=== PATIENT | male | born 1965 | race Caucasian/White ===

== ENCOUNTER 2016-08-29 10:00 | Day surgery (SDC) | payer BC ==
[2016-08-25 11:53] VITALS: BMI 27.6
[~2016-08-29 10:00] MED LIST: LACTATED RINGERS 1,000 ML IV SCH
[2016-08-29 10:15] VITALS: RESP 16; TEMP 98.7
[2016-08-29] MEDS ORDERED: LIDOCAINE 1% 20 ML VIAL (10MG/ML) FOR IV START INTRADERMA ONE (10:20)
[2016-08-29] MEDS ORDERED: PROPOFOL 10 MG/ML 20 ML VIAL IV ONE (10:31)
--- NOTE | 2016-08-29 10:43 | P.GSHP ---
History of Present Illness H&P Date: 08/29/16 Chief Complaint: Change in bowel habits Patient here today for colonoscopy. Last colonoscopy 4-5 years ago. He has had recent change in bowel habits including diverticulitis. Denies rectal bleeding or melena. Past Medical History Past Medical History: GERD/Reflux, Hyperlipidemia, Hypertension Additional Past Medical History / Comment(s): HX OF DIVERTICULITUS History of Any Multi-Drug Resistant Organisms: None Reported Past Surgical History: Appendectomy Additional Past Surgical History / Comment(s): PREVIOUS COLONOSCOPY Past Anesthesia/Blood Transfusion Reactions: No Reported Reaction Past Psychological History: No Psychological Hx Reported Smoking Status: Current every day smoker Past Alcohol Use History: Occasional Additional Past Alcohol Use History / Comment(s): HAS SMOKED ON AND OFF 1/2 PPD FROM AGE 22 Past Drug Use History: None Reported - Past Family History Father Family Medical History: Pulmonary Embolus Medications and Allergies Home Medications Medication Instructions Recorded Confirmed Type Atorvastatin [Lipitor] 40 mg PO DAILY 08/25/16 08/29/16 History Losartan-Hctz 50-12.5 mg [Hyzaar 1 tab PO QAM 08/25/16 08/29/16 History 50-12.5] Omeprazole [PriLOSEC] 40 mg PO DAILY 08/25/16 08/29/16 History Allergies Allergy/AdvReac Type Severity Reaction Status Date / Time Penicillins Allergy Unknown Verified 08/25/16 11:47 Childhood Surgical - Exam Vital Signs Temp Pulse Resp BP Pulse Ox 98.7 F 89 16 141/94 94 L 08/29/16 10:12 08/29/16 10:12 08/29/16 10:12 08/29/16 10:12 08/29/16 10:12 Physical exam: General: Well-developed, well-nourished HEENT: Normocephalic, sclerae nonicteric Abdomen: Nontender, nondistended Extremities: No edema Neuro: Alert and oriented Assessment and Plan (1) Change in bowel habits Narrative/Plan: Will proceed with colonoscopy today. Status: Acute
--- NOTE | 2016-08-29 10:57 | P.PCN ---
Date of Procedure: 08/29/16 Procedure(s) Performed: PREOPERATIVE DIAGNOSIS: Change in bowel habits, diverticulitis POSTOPERATIVE DIAGNOSIS: Small ascending colon polyps, diverticulosis PROCEDURE: Colonoscopy with biopsy ANESTHESIA: MAC SURGEON: Natan Armas M.D. SPECIMENS: Ascending colon polyp ENDOSCOPIC PROCEDURE: The patient was placed on the endoscopy table in the left decubitus position. The Olympus colonoscope was inserted into the anus and passed under direct visualization to the base of the cecum. The appendiceal orifice was visualized. From that point the scope was slowly withdrawn inspecting all surfaces carefully. There were no neoplastic inflammatory or polypoid lesions throughout the cecum. In the ascending colon there were 2-3 small polyps removed using the cold biopsy forceps. The remainder of the ascending, transverse, descending, sigmoid and rectum appeared normal. There was mild diverticulosis noted. Digital rectal examination was normal. The patient was taken to the recovery room in stable condition per anesthesia guidelines. RECOMMENDATIONS: Increase fiber. Await biopsy results.
[2016-08-29 11:18] VITALS: BP 126/87; PULSE 71
== END 2016-08-29 11:36 | disposition home or self-care (01) ==
LOC: ORWHC2ENDO 10:00
PROVIDERS: ATTEND Surgery
DX: D12.2 Benign neoplasm of ascending colon (principal); K57.30 Diverticulosis of large intestine without perforation or abscess without bleeding; I10 Essential (primary) hypertension; E78.5 Hyperlipidemia, unspecified; Z79.899 Other long term (current) drug therapy; F17.200 Nicotine dependence, unspecified, uncomplicated; Z88.0 Allergy status to penicillin
CPT/HCPCS: 88305; 45380; J2704; 99153

== ENCOUNTER 2021-01-29 07:26 | Day surgery (SDC) | payer BC ==
[2021-01-24 15:20] VITALS: BMI 25.1
[2021-01-29 07:49] VITALS: RESP 16; TEMP 98.3
[2021-01-29] MEDS ORDERED: PROPOFOL 10 MG/ML 20 ML VIAL IV ONE (08:40)
--- NOTE | 2021-01-29 08:44 | P.GSHP ---
History of Present Illness H&P Date: 01/29/21 Chief Complaint: Screening, history of polyps 55-year-old male here today for colonoscopy. Last colonoscopy 4-1/2 years ago. Patient with history of previous tubular adenomas. He had 2 in the ascending colon last time. No family history of colon cancer. He does have a personal history of diverticulitis. No bowel complaints currently. Past Medical History Past Medical History: GERD/Reflux, Hyperlipidemia, Hypertension Additional Past Medical History / Comment(s): HX OF DIVERTICULITUS History of Any Multi-Drug Resistant Organisms: None Reported Past Surgical History: Appendectomy, Hernia Repair Additional Past Surgical History / Comment(s): COLONOSCOPY Past Anesthesia/Blood Transfusion Reactions: No Reported Reaction Smoking Status: Current every day smoker - Past Family History Father Family Medical History: Pulmonary Embolus Medications and Allergies Home Medications Medication Instructions Recorded Confirmed Type Atorvastatin Calcium [Lipitor] 40 mg PO QAM 01/24/21 01/29/21 History Losartan Potassium 100 mg PO QAM 01/24/21 01/29/21 History Pantoprazole [Protonix] 40 mg PO DAILY 01/24/21 01/29/21 History Allergies Allergy/AdvReac Type Severity Reaction Status Date / Time Penicillins Allergy Unknown Verified 01/29/21 07:53 Childhood Surgical - Exam Vital Signs Temp Pulse Resp BP Pulse Ox 98.3 F 80 16 139/88 99 01/29/21 07:42 01/29/21 07:42 01/29/21 07:42 01/29/21 07:42 01/29/21 07:42 Physical exam: General: Well-developed, well-nourished HEENT: Normocephalic, sclerae nonicteric Abdomen: Nontender, nondistended Extremities: No edema Neuro: Alert and oriented Assessment and Plan (1) Colon cancer screening Narrative/Plan: Will proceed with colonoscopy at this time Current Visit: Yes Status: Acute Code(s): Z12.11 - ENCOUNTER FOR SCREENING FOR MALIGNANT NEOPLASM OF COLON SNOMED Code(s): 438850093
--- NOTE | 2021-01-29 09:08 | P.PCN ---
Date of Procedure: 01/29/21 Procedure(s) Performed: PREOPERATIVE DIAGNOSIS: Colon cancer screening, history of polyps POSTOPERATIVE DIAGNOSIS: Ascending colon polyp, descending colon polyp, diverticulosis PROCEDURE: Colonoscopy with snare polypectomy ANESTHESIA: MAC SURGEON: Natan Armas M.D. SPECIMENS: Polyps ENDOSCOPIC PROCEDURE: The patient was placed on the endoscopy table in the left decubitus position. The Olympus colonoscope was inserted into the anus and passed under direct visualization to the base of the cecum. The appendiceal orifice was visualized. From that point the scope was slowly withdrawn inspecting all surfaces carefully. There were no neoplastic inflammatory or polypoid lesions throughout the cecum. In the ascending colon a small polyp was seen and removed using the snare with cautery technique. The transverse colon appeared normal. In the descending colon another small polyp was seen and rem yashira in a similar fashion. The remainder of the sigmoid and rectum appeared normal with exception of extensive left-sided diverticulosis. There was subtle inflammatory changes noted in the vicinity of the diverticulosis likely on the basis of chronic diverticulitis. Digital rectal examination was normal. The patient was taken to the recovery room in stable condition per anesthesia guidelines. RECOMMENDATIONS: Resume diet. Await biopsy results. Anticipate Follow-up colonoscopy 5 years.
[2021-01-29 09:21] VITALS: BP 120/84; PULSE 74
== END 2021-01-29 09:38 | disposition home or self-care (01) ==
LOC: ORWHC2ENDO 07:26
PROVIDERS: ATTEND Surgery
DX: Z12.11 Encounter for screening for malignant neoplasm of colon (principal); D12.2 Benign neoplasm of ascending colon; D12.4 Benign neoplasm of descending colon; K57.30 Diverticulosis of large intestine without perforation or abscess without bleeding; K21.9 Gastro-esophageal reflux disease without esophagitis; E78.5 Hyperlipidemia, unspecified; I10 Essential (primary) hypertension; F17.210 Nicotine dependence, cigarettes, uncomplicated; Z82.49 Family history of ischemic heart disease and other diseases of the circulatory system; Z90.89 Acquired absence of other organs; Z98.890 Other specified postprocedural states; Z79.899 Other long term (current) drug therapy; Z88.0 Allergy status to penicillin
CPT/HCPCS: 88305; 45385; J2704